=== PATIENT | male | born 1980 | race Caucasian/White ===

== ENCOUNTER 2017-11-03 10:53 | Inpatient (IN) | payer OTHER ==
[~2017-11-03] VITALS: Ht 190.5 cm; Wt 98.9 kg
[2017-11-03 11:01] VITALS: BP 123/83
[2017-11-03 11:20] LABS: HEMATOCRIT 45.5 % (42.0-52.0); HEMOGLOBIN 15.4 gm/dL (14.0-18.0); MCH 29.6 pg (26.0-34.0); MCHC 33.8 g/dL (28.0-37.0); MCV 87.5 fL (80.0-100.0); MPV 8.1 fl. (7.2-11.1); NUCLEATED RBCS 0 /100WBC; PLATELET COUNT* 234 thou/uL (150-400); RDW-CV 13.9 % (10.5-14.5); WBC 21.9 thou/uL (4.0-11.0)
[2017-11-03 11:28] LABS: CALCIUM 9.3 mg/dL (8.5-10.1); POTASSIUM 3.8 mmol/L (3.5-5.1)
[2017-11-03 11:35] LABS: ALBUMIN 3.6 g/dL (3.4-5.0); TOTAL PROTEIN 8.2 g/dL (6.4-8.2)
[2017-11-03 11:42] LABS: ABSOLUTE LYMPHOCYTES 0.7 thou/uL (0.8-5.3); ABSOLUTE MONOCYTES 1.3 thou/uL (0.0-1.2); ABSOLUTE NEUTROPHILS 19.9 thou/uL (1.6-8.1); ANISOCYTOSIS 1+; PLATELET ESTIMATE ADEQUATE; POIKILOCYTOSIS 1+
[2017-11-03 12:26] LABS: URINE BILIRUBIN NEGATIVE (Negative); URINE BLOOD TRACE (Negative); URINE CLARITY CLEAR; URINE COLOR DARK YELLOW; URINE GLUCOSE-RANDOM NEGATIVE (Negative); URINE KETONES NEGATIVE (Negative); URINE LEUKOCYTES-REFLEX NEGATIVE (Negative); URINE NITRITE-REFLEX NEGATIVE (Negative); URINE PROTEIN 1+ (Negative); URINE UROBILINOGEN 0.2 E.U./dl (0.2-1.0)
[2017-11-03 15:17] VITALS: BP 118/83
[2017-11-03 19:15] VITALS: BP 119/74
[2017-11-04 00:30] VITALS: BP 101/62
[2017-11-04 04:32] VITALS: BP 101/60
[2017-11-04 05:12] LABS: HEMATOCRIT 39.5 % (42.0-52.0); MCH 29.5 pg (26.0-34.0); MCHC 33.7 g/dL (28.0-37.0); MCV 87.6 fL (80.0-100.0); MPV 8.5 fl. (7.2-11.1); RBC 4.51 mil/uL (4.50-6.00); WBC 8.7 thou/uL (4.0-11.0)
[2017-11-04 05:33] LABS: HEMOGLOBIN 13.3 gm/dL (14.0-18.0)
[2017-11-04 05:53] LABS: ALBUMIN 2.6 g/dL (3.4-5.0); CALCIUM 7.7 mg/dL (8.5-10.1); POTASSIUM 4.1 mmol/L (3.5-5.1); TOTAL BILIRUBIN 0.9 mg/dL (<0.1-1.0); TOTAL PROTEIN 5.8 g/dL (6.4-8.2)
[2017-11-04 08:20] VITALS: BP 104/69
[2017-11-04 15:33] VITALS: BP 104/68
[2017-11-04 20:45] VITALS: BP 117/79
[2017-11-05 03:25] LABS: HEMATOCRIT 39.2 % (42.0-52.0); MCH 29.2 pg (26.0-34.0); MCHC 33.1 g/dL (28.0-37.0); MCV 88.2 fL (80.0-100.0); MPV 8.1 fl. (7.2-11.1); RBC 4.45 mil/uL (4.50-6.00); RDW-CV 13.7 % (10.5-14.5); WBC 7.7 thou/uL (4.0-11.0)
[2017-11-05 03:33] LABS: CALCIUM 8.4 mg/dL (8.5-10.1); MAGNESIUM 2.1 mg/dL (1.8-2.4); PHOSPHORUS* 1.9 mg/dL (2.5-4.9); POTASSIUM 3.7 mmol/L (3.5-5.1)
[2017-11-05 09:00] VITALS: BP 113/75
[2017-11-05 17:04] VITALS: BP 111/74
[2017-11-05 20:00] VITALS: BP 124/79
[2017-11-06 00:39] VITALS: BP 123/81
[2017-11-06 04:02] VITALS: BP 125/88
[2017-11-06 04:14] LABS: HEMATOCRIT 38.3 % (42.0-52.0); MCH 29.9 pg (26.0-34.0); MCV 87.9 fL (80.0-100.0); MPV 7.7 fl. (7.2-11.1); RBC 4.36 mil/uL (4.50-6.00); RDW-CV 13.8 % (10.5-14.5); WBC 8.5 thou/uL (4.0-11.0)
[2017-11-06 04:25] LABS: CALCIUM 8.4 mg/dL (8.5-10.1); CREATININE 0.9 mg/dL (0.6-1.3); POTASSIUM 3.4 mmol/L (3.5-5.1)
[2017-11-06 04:45] LABS: MAGNESIUM 2.2 mg/dL (1.8-2.4); PHOSPHORUS* 3.5 mg/dL (2.5-4.9)
[2017-11-06 08:45] VITALS: BP 120/81
[2017-11-06 15:34] VITALS: BP 138/87
[2017-11-06 20:00] VITALS: BP 120/84
[2017-11-07 00:36] VITALS: BP 124/85
[2017-11-07 04:33] VITALS: BP 129/86
[2017-11-07 04:49] LABS: CALCIUM 8.2 mg/dL (8.5-10.1); CREATININE 0.8 mg/dL (0.6-1.3); POTASSIUM 3.6 mmol/L (3.5-5.1)
[2017-11-07 08:00] VITALS: BP 130/81
[2017-11-07 16:01] VITALS: BP 134/76
[2017-11-07 19:40] VITALS: BP 134/86
[2017-11-08] VITALS: BP 126/74
[2017-11-08 04:00] VITALS: BP 122/68
[2017-11-08 04:43] LABS: CALCIUM 7.9 mg/dL (8.5-10.1); CREATININE 0.8 mg/dL (0.6-1.3); POTASSIUM 3.4 mmol/L (3.5-5.1)
[2017-11-08 09:15] VITALS: BP 131/87
[2017-11-08 16:01] VITALS: BP 126/85
[2017-11-08 20:00] VITALS: BP 125/86
[2017-11-09] VITALS: BP 128/85
[2017-11-09 04:00] VITALS: BP 137/86
[2017-11-09 04:43] LABS: HEMATOCRIT 37.5 % (42.0-52.0); HEMOGLOBIN 12.6 gm/dL (14.0-18.0); MCH 29.2 pg (26.0-34.0); MCHC 33.7 g/dL (28.0-37.0); MCV 86.6 fL (80.0-100.0); MPV 7.6 fl. (7.2-11.1); RBC 4.33 mil/uL (4.50-6.00); RDW-CV 13.7 % (10.5-14.5)
[2017-11-09 05:14] LABS: CALCIUM 7.9 mg/dL (8.5-10.1); CREATININE 0.8 mg/dL (0.6-1.3); MAGNESIUM 1.9 mg/dL (1.8-2.4); PHOSPHORUS* 3.6 mg/dL (2.5-4.9); POTASSIUM 3.3 mmol/L (3.5-5.1)
--- NOTE | 2017-11-09 08:16 | PATH ---
[address] [address] PATHOLOGY RPT PROCEDURE Name: OSVALDO RASHID Room: [address] IN .R.#: [id number] Admission: 11/03/17 Date of : 80 Discharge: Report #: [id number] Path Case #: [id number] [facility] Accession Number: [id number] . 01 Material submitted: . APPENDIX . 01 Clinical history: . RLQ pain, acute appendicitis . 02 Diagnosis: Appendix: - Acute, gangrenous appendicitis, periappendicitis and serositis with multiple disrupted foci compatible with perforation. (JOSIAH:pit 11/08/2017) QTP/11/08/2017 . 02 Electronically signed: . Chucky Vasquez MD, Pathologist NPI- [id number] . 01 Gross description: . Received in formalin labeled "Desmond, Osvaldo, appendix," is an appendix measuring 7.3 cm in length by up to 1.2 cm in diameter with a small amount of attached mesoappendix measuring up to 1.2 cm in thickness. The serosal surface is shaggy and light mcfarlane to dark brown in appearance, and is largely encased in adhesions/exudate. The proximal margin is closed with a linear staple line. Five distinct perforations are noted on the serosal surface. The first perforation measures 0.4 cm from the proximal margin and measures 0.6 cm in diameter; this perforation is inked yellow. The second perforation measures 1.4 cm from the proximal margin and measures 0.3 cm in diameter; this perforation is inked green. The third perforation measures 1.9 cm from the proximal margin and measures 0.2 cm in diameter; this perforation is inked red. The fourth perforation measures 2.2 cm from the proximal margin and measures 0.3 cm in diameter; this perforation is inked blue. The fifth perforation measures 4.1 cm from the proximal margin and measures 0.1 cm in diameter; this perforation is inked orange. Sectioning reveals a patent to dilated lumen filled with dark brown, friable fecal material. The proximal margin and bisected distal tip are submitted in cassette A1, and additional patient support representative sections are submitted in cassettes A2 through A5, to representatively include all perforations. ([facility]; 11/07/2017) XDC/XDC . 02 Pathologist provided ICD-10: K35.80 . [address] [place] [address] PATHOLOGY RPT PROCEDURE Name: OSVALDO RASHID CORWIN Room: [address] IN [facility]#: [id number] Admission: 11/03/17 Date of : 80 Discharge: Report #: [id number] Path Case #: [id number] [facility] . [id number] Performed at: 01 [facility] [place] [address], [place], [place] [id number] MD Troy Rey MD Phone: [phone] Performed at: [address] [facility] [address] [place] [id number] MD Chucky Vasquez MD Phone: [phone]
[2017-11-09 09:33] VITALS: BP 136/86
[2017-11-09 13:58] VITALS: BP 136/86
[2017-11-09 19:40] VITALS: BP 129/89
[2017-11-10] VITALS (25 sets, daily range): BP systolic 116–166; BP diastolic 7–87
[2017-11-10 05:19] LABS: HEMATOCRIT 38.3 % (42.0-52.0); HEMOGLOBIN 12.8 gm/dL (14.0-18.0); MCHC 33.5 g/dL (28.0-37.0); MCV 86.8 fL (80.0-100.0); MPV 7.4 fl. (7.2-11.1); RBC 4.41 mil/uL (4.50-6.00); RDW-CV 13.6 % (10.5-14.5); WBC 11.4 thou/uL (4.0-11.0)
[2017-11-10 05:35] LABS: CALCIUM 7.7 mg/dL (8.5-10.1); CREATININE 0.8 mg/dL (0.6-1.3); MAGNESIUM 2.1 mg/dL (1.8-2.4); PHOSPHORUS* 3.5 mg/dL (2.5-4.9); POTASSIUM 3.3 mmol/L (3.5-5.1)
--- NOTE | 2017-11-10 15:44 | OP ---
[address] [address] OPERATIVE REPORT Name: JV RASHID Room: [address] IN M.R.#: [id number] Admission: 11/03/17 Attend Phys: Yelena Mccoy MD Discharge: Date of : 80 Report #: [id number] THIS REPORT FOR: //name// CC: Yelena Turner NP DATE OF SERVICE: 11/03/2017 PREOPERATIVE DIAGNOSIS: Perforated appendicitis. POSTOPERATIVE DIAGNOSIS: Perforated appendicitis. PROCEDURE: Laparoscopic appendectomy. SURGEON: Yelena Mccoy MD. HAMMERER HELPER: 1. Veronika Su DO. 2. Horace Glover DO. ESTIMATED BLOOD LOSS: 50 mL. COMPLICATIONS: None. FINDINGS: Perforated appendicitis with marilou purulence and necrotic appendix with abscess cavity. DRAINS: 15-Belgian DAYA. DESCRIPTION OF PROCEDURE: Full informed consent obtained preoperatively. Full discussion of risks, benefits, alternatives, questions answered. The patient understood risk of bleeding, infection, reoperation, injury to surrounding structures, conversion to open recurrent abscess or infection, catastrophic complications up to , chronic pain, hernia. He understood and wished to proceed. The patient was taken to the operating room. We prepped and draped in standard sterile fashion, began with a timeout with all in agreement. A 12-mm incision made above the umbilicus, used open Doyle to enter safely into the abdomen, severe ileus noted. I was able to place 5-mm trocars under direct visualization, left lower quadrant suprapubic. The patient placed head down tilted to the left, the cecum from the anterior abdominal wall. Appendix was noted tucked beneath it, it was gangrenous - marilou black necrosis. I it, but I did identify a healthy base going into the cecum. This was away from the TI. I made a window with the [place] and fired the blue load laparoscopic CHRIS stapler to transect it. I identified the tip bluntly. I took the remainder of the mesentery with the Harmonic [place] [id number] OPERATIVE REPORT Name: JV RASHID Room: [address] ADM IN M.R.#: [id number] Admission: 11/03/17 Attend Phys: Yelena Mccoy MD Discharge: Date of : 80 Report #: [id number] of course had been suctioned up immediately upon entry. There was minor bleeding at the mesoappendix. I secured this with Harmonic scalpel and then placed an additional Endoloop around it securely. I next irrigated copiously, made sure it was entirely clear. Appendix removed through EndoCatch bag through umbilical port to be sent to pathology and placed a DAYA drain in the right lower quadrant, anchored in place with 2-0 nylon. It was brought out through the left lower quadrant incision. I saw no other acute abnormalities; however ileus was severe. An 0 Vicryl and UR-6 was used to close the umbilical fascia. Finger sweep confirmed no entrapped contents, 4-0 Monocryl to close skin. Local injected. Dermabond applied. Sponge, needle, instrument counts correct. The patient tolerated well. <ELECTRONICALLY SIGNED> By: Yelena Mccoy MD 11/10/17 1544 [id number] 1830Darcjoey Mccoy MD /nt
[2017-11-11 04:23] VITALS: BP 136/83
[2017-11-11 07:50] VITALS: BP 116/81
[2017-11-11 15:43] VITALS: BP 117/75
[2017-11-11 21:15] VITALS: BP 130/90
[2017-11-12 00:34] VITALS: BP 124/79
[2017-11-12 04:46] VITALS: BP 119/80
[2017-11-12 06:40] LABS: HEMATOCRIT 37.1 % (42.0-52.0); HEMOGLOBIN 12.3 gm/dL (14.0-18.0); MCH 28.8 pg (26.0-34.0); MCHC 33.3 g/dL (28.0-37.0); MCV 86.5 fL (80.0-100.0); MPV 7.4 fl. (7.2-11.1); RBC 4.29 mil/uL (4.50-6.00); RDW-CV 13.3 % (10.5-14.5); WBC 10.1 thou/uL (4.0-11.0)
[2017-11-12 06:55] LABS: ALBUMIN 2.3 g/dL (3.4-5.0); CALCIUM 7.6 mg/dL (8.5-10.1); CREATININE 0.8 mg/dL (0.6-1.3); MAGNESIUM 2.1 mg/dL (1.8-2.4); POTASSIUM 3.4 mmol/L (3.5-5.1); TOTAL BILIRUBIN 0.3 mg/dL (<0.1-1.0)
[2017-11-12 08:00] VITALS: BP 129/85
[2017-11-12 15:46] VITALS: BP 124/74
[2017-11-12 21:30] VITALS: BP 128/85
[2017-11-13 00:09] VITALS: BP 118/79
[2017-11-13 04:04] VITALS: BP 124/84
[2017-11-13 04:43] LABS: ABSOLUTE BASOPHILS 0.1 thou/uL (0.0-0.2); ABSOLUTE EOSINOPHILS 0.1 thou/uL (0.0-0.7); ABSOLUTE LYMPHOCYTES 1.6 thou/uL (0.8-5.3); ABSOLUTE MONOCYTES 0.9 thou/uL (0.0-1.2); BASOPHILS 0.8 %; EOSINOPHILS 0.9 %; HEMATOCRIT 37.2 % (42.0-52.0); HEMOGLOBIN 12.4 gm/dL (14.0-18.0); LYMPHOCYTES 12.5 %; MCH 28.9 pg (26.0-34.0); MCHC 33.3 g/dL (28.0-37.0); MCV 86.7 fL (80.0-100.0); MONOCYTES 7.4 %; NUCLEATED RBCS 0 /100WBC; PLATELET COUNT* 272 thou/uL (150-400); POLYS 78.4 %; RBC 4.29 mil/uL (4.50-6.00); RDW-CV 13.6 % (10.5-14.5); WBC 12.7 thou/uL (4.0-11.0)
[2017-11-13 05:20] LABS: CALCIUM 7.8 mg/dL (8.5-10.1); CREATININE 0.8 mg/dL (0.6-1.3); MAGNESIUM 2.3 mg/dL (1.8-2.4); PHOSPHORUS* 2.9 mg/dL (2.5-4.9); POTASSIUM 3.7 mmol/L (3.5-5.1)
[2017-11-13 08:10] VITALS: BP 126/88
[2017-11-13 16:05] VITALS: BP 136/87
[2017-11-13 21:30] VITALS: BP 110/69
[2017-11-14 05:53] LABS: HEMOGLOBIN 12.7 gm/dL (14.0-18.0); MCH 28.6 pg (26.0-34.0); MCHC 32.6 g/dL (28.0-37.0); MCV 87.7 fL (80.0-100.0); MPV 8.1 fl. (7.2-11.1); RBC 4.45 mil/uL (4.50-6.00); RDW-CV 13.8 % (10.5-14.5); WBC 14.3 thou/uL (4.0-11.0)
[2017-11-14 06:12] LABS: CALCIUM 7.5 mg/dL (8.5-10.1); CREATININE 0.8 mg/dL (0.6-1.3); PHOSPHORUS* 3.3 mg/dL (2.5-4.9); POTASSIUM 4.5 mmol/L (3.5-5.1)
[2017-11-14 07:45] VITALS: BP 110/67
[2017-11-14 16:31] VITALS: BP 106/68
[2017-11-14 16:37] VITALS: BP 106/68
[2017-11-14 20:00] VITALS: BP 105/69
[2017-11-14 23:56] VITALS: BP 104/69
[2017-11-15 04:30] VITALS: BP 118/72
[2017-11-15] MEDS ORDERED: AUGMENTIN 875-1 EACH PO (07:23)
[2017-11-15 08:15] VITALS: BP 105/65
[2017-11-15 11:46] VITALS: BP 105/65
[2017-11-15 12:34] VITALS: BP 105/65
== END 2017-11-15 12:20 | disposition home or self-care (01) | DRG 853 ==
LOC: M.ERS 10:53 → M.ORTHSURG 14:04 → M.TBA-ER 14:04 → M.ORTHSURG 19:19
PROVIDERS: Nurse Practitioner Family; Surgery; ADMIT Surgery
PROC: 0DTJ4ZZ Resection of Appendix, Percutaneous Endoscopic Approach (ICD-10-PCS; principal; 2017-11-03)
PROC: 0D9W30Z Drainage of Peritoneum with Drainage Device, Percutaneous Approach (ICD-10-PCS; 2017-11-10)
DX: A41.9 Sepsis, unspecified organism (principal); K35.2 Acute appendicitis with generalized peritonitis; K35.3 Acute appendicitis with localized peritonitis; K56.7 Ileus, unspecified; B96.20 Unspecified Escherichia coli [E. coli] as the cause of diseases classified elsewhere